=== PATIENT | male | born 2000 | race Two or more races ===

== ENCOUNTER 2018-03-19 19:15 | Emergency (ER) | payer OTHER ==
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
[2018-03-19] MEDS ORDERED: Lidocaine 2% EPI 1:200000 MPF*10-20 ML VIAL ONE (21:38)
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
[2018-03-19 22:20] VITALS: BP 125/81
== END 2018-03-19 22:19 | disposition home or self-care (01) ==
LOC: ED 19:15
DX: S02.5XXA Fracture of tooth (traumatic), initial encounter for closed fracture (principal); S06.0X9A Concussion with loss of consciousness of unspecified duration, initial encounter; R04.0 Epistaxis; R51 Headache; K08.89 Other specified disorders of teeth and supporting structures; W51.XXXA Accidental striking against or bumped into by another person, initial encounter; Y93.74 Activity, frisbee; Y92.9 Unspecified place or not applicable
CPT/HCPCS: 70486; 99281

== ENCOUNTER 2019-02-04 14:26 | Emergency (ER) | payer OTHER, BC ==
[2019-02-04 14:57] LABS: ABS Basophils 0.1 10^3/ul (0-0.2); ABS Lymphocytes 0.9 10^3/ul (1.0-4.8); ABS Monocytes 0.5 10^3/ul (0-0.8); ABS Neutrophils 4.9 10^3/ul (1.5-7.7); Eosinophil % 0.5 %; Hematocrit 48 % (42-52); Hemoglobin 16.3 g/dL (14.0-18.0); Lymphocyte % 14.4 %; Mean Corpuscular HGB Conc 34 g/dL (31-36); Mean Corpuscular Hemoglobin 29 pg (27-31); Mean Corpuscular Volume 85 fL (80-94); Mean Platelet Volume 6.9 fL (7.4-10.4); Nucleated Red Blood Cells % 0.1; Platelet Count 296 10^3/uL (150-450); Red Blood Count 5.64 10^6 /uL (4.18-5.48); Red Cell Distribution Width 14 % (10-15); White Blood Count 6.5 10^3/uL (3.5-10.8)
--- NOTE | 2019-02-04 15:04 | ED ---
Psychiatric Complaint - HPI Summary HPI Summary: This pt is a 18 Y/O M presenting to [facility] with a CC of depression for around a month. States that he was dating a girl since September on and off. Broke up recently and decided to try dating again this week, she stated that she needed a break due to family issues. She stopped seeing him over the summer and he stated that he needed a break from her in order to get over her. 02/03/19 in the night she visited the pt at his and they hooked up. He stated that he was talking to her this morning and became very confused as to what she wanted. He stated that he has been depressed this past month due to the fact that he has had freed time and she has not wanted to hang out with him. He states that he has SI but stated that he has never attempted. He also denies any CP, SOB, fevers, chills, N/V, abdominal pains, headaches, weakness, HI. He has no PMHx of anxiety or depression. He has a FHx of HTN and diabetes. - History Of Current Complaint Time Seen by Provider: 02/04/19 14:42 Hx Obtained From: Patient Onset/Duration: Gradual Onset, Lasting Weeks - 4, Still Present, Worse Since Timing: Constant Severity Initially: Moderate Severity Currently: Severe Character: Depressed Aggravating Factor(s): Recent Stress - broke up GF Alleviating Factor(s): Nothing Associated Signs And Symptoms: Positive: Confused Has Suicidal: Reports: Thoughts. Denies: With A Plan Has Homicidal: Denies: Thoughts, With A Plan Recent Stressor(s): Broke up with GF - Allergies/Home Medications Allergies/Adverse Reactions: Allergies Allergy/AdvReac Type Severity Reaction Status Date / Time No Known Allergies Allergy Verified 03/19/18 19:22 PMH/Surg Hx/FS Hx/Imm Hx Previously Healthy: Yes Endocrine/Hematology History: Denies: Hx Anemia Cardiovascular History: Denies: Hx Hypertension Respiratory History: Denies: Hx Asthma Sensory History: Reports: Hx Contacts or Glasses Denies: Hx Legally Blind, Hx Deafness Opthamlomology History: Reports: Hx Contacts or Glasses Denies: Hx Legally Blind - Surgical History Surgery Procedure, Year, and Place: wisdom teeth removal 12/2018. - Immunization History Immunizations Up to Date: Yes Infectious Disease History: Denies: Traveled Outside the [place] in Last 30 Days - Family History Known Family History: Positive: Cardiac Disease - paternal and maternal, Diabetes - paternal and maternal - Social History Occupation: Employed Part-time, Student Lives: Dormitory/Roommates Alcohol Use: None Substance Use Type: Reports: None Smoking Status (MU): Never Smoked Tobacco Review of Systems Negative: Fever, Chills Negative: Chest Pain Negative: Shortness Of Breath Negative: Abdominal Pain, Vomiting, Nausea Negative: Headache, Weakness Psychological: Other - NEGATIVE: HI Positive: Depressed, Other - POSITIVE: SI All Other Systems Reviewed And Are Negative: Yes Physical Exam - Summary Physical Exam Summary: VITAL SIGNS: Reviewed. GENERAL: Patient is a well-developed and nourished male who is lying comfortable in the stretcher. Patient is not in any acute respiratory distress. HEAD AND FACE: No signs of trauma. No ecchymosis, hematomas or skull depressions. No sinus tenderness. EYES: PERRLA, EOMI x 2, No injected conjunctiva, no nystagmus. EARS: Hearing grossly intact. Ear canals and tympanic membranes are within normal limits. MOUTH: Oropharynx within normal limits. NECK: Supple, trachea is midline, no adenopathy, no JVD, no carotid bruit, no c- spine tenderness, neck with full ROM. CHEST: Symmetric, no tenderness at palpation LUNGS: Clear to auscultation bilaterally. No wheezing or crackles. CVS: Regular rate and rhythm, S1 and S2 present, no murmurs or gallops appreciated. ABDOMEN: Soft, non-tender. No signs of distention. No rebound no guarding, and no masses palpated. Bowel sounds are normal. EXTREMITIES: FROM in all major joints, no edema, no cyanosis or clubbing. NEURO: Alert and oriented x 3. No acute neurological deficits. Speech is normal and follows commands. SKIN: Dry and warm Triage Information Reviewed: Yes Vital Signs Reviewed: Yes Diagnostics - Laboratory Result Diagrams: 02/04/19 14:52 02/04/19 14:52 Lab Statement: Any lab studies that have been ordered have been reviewed, and results considered in the medical decision making process. Re-Evaluation - Re-Evaluation First Eval Re-Evaluation Time: 15:21 Change: Unchanged Comment: Pt was mediclly cleared for MHE. Course/Dx - Course Assessment/Plan: Blood work w/o a significant abnormality. He is medically cleared. He is awaiting a MHE. Patient is hemodynamically stable and A+O x 3. Dr. Hare (Psychiatry) assess patient and clear the patient and recommends to discharge the patient home with outpatient follow up. - Differential Dx/Clinical Impression Provider Diagnosis: Adjustment disorder with depressed mood - Physician Notifications Discussed Care Of Patient With: Rick Hare Time Discussed With Above Provider: 16:40 Instructed by Provider To: Other - Pt will be discharged home and referred to an outside therapist. Discharge - Sign-Out/Discharge Documenting (check all that apply): Patient Departure - discharge Patient Received Moderate/Deep Sedation with Procedure: No - Discharge Plan Condition: Stable Disposition: HOME Referrals: No Primary Care Phys,NOPCP [Primary Care Provider] - - Billing Disposition and Condition Condition: STABLE Disposition: Home - Attestation Statements Document Initiated by Silvino: Yes Documenting Scribe: Ray Darden Provider For Whom Scribe is Documenting (Include Credential): Valentin Clemens MD Scribe Attestation: Ray Billy scribed for Valentin Clemens MD on 02/04/19 at 1707. Scribe Documentation Reviewed: Yes Provider Attestation: The documentation as recorded by the Ray trevino accurately reflects the service I personally performed and the decisions made by Valentin brown MD Status of Scribe Document: Viewed
[2019-02-04 15:24] LABS: ALT 13 U/L (7-52); AST 19 U/L (13-39); Albumin 4.7 g/dL (3.2-5.2); Albumin/Globulin Ratio 1.7 (1-3); Alkaline Phosphatase 68 U/L (34-104); Anion Gap 8 mmol/L (2-11); BUN/Creatinine Ratio 18.2 (8-20); Blood Urea Nitrogen 18 mg/dL (6-24); CO2 Carbon Dioxide 25 mmol/L (22-32); Calcium 10.1 mg/dL (8.6-10.3); Chloride 103 mmol/L (101-111); EGFR African American 116.6 (>60); EGFR Non-African American 96.4 (>60); Globulin 2.8 g/dL (2-4); Glucose 101 mg/dL (70-100); Potassium 4.3 mmol/L (3.5-5.0); Sodium 136 mmol/L (135-145); Total Protein 7.5 g/dL (6.4-8.9)
[2019-02-04 15:26] LABS: Acetaminophen < 15 mcg/mL; Alcohol < 10 mg/dL (<10); Salicylate < 2.50 mg/dL (<30)
[2019-02-04 15:27] LABS: Urine Appearance Clear; Urine Bilirubin Negative (Negative); Urine Blood Negative (Negative); Urine Color Yellow; Urine Glucose Negative (Negative); Urine Ketones 1+ (Negative); Urine Nitrite Negative (Negative); Urine Protein Negative (Negative); Urine Specific Gravity 1.031 (1.010-1.030); Urine Urobilinogen Negative (Negative)
[2019-02-04 15:43] LABS: Urine Benzodiazepine Screen None Detected (None Detect); Urine Opiates Screen None Detected (None Detect)
[2019-02-04 17:57] VITALS: BP 00/00
== END 2019-02-04 17:55 | disposition home or self-care (01) ==
LOC: ED 14:26
DX: F43.21 Adjustment disorder with depressed mood (principal)
CPT/HCPCS: 36415; 80053; 80307; 80320; 80329; 81003; 84443; 85025; 99283; G0480